=== PATIENT | female | born 1995 | race Two or more races ===

== ENCOUNTER 2018-11-21 16:50 | Observation (INO) | payer BC, MEDICAID ==
[~2018-11-21] VITALS: Ht 162.6 cm; Wt 52.0 kg
[2018-11-21] MEDS ORDERED: normal saline 1000ML IV soln IVB ONE (17:00)
[2018-11-21] MEDS ORDERED: metoclopramide 5 mg/ml inj IV ONE (17:00)
[2018-11-21] MEDS ORDERED: morphine 4 MG/ML inj SYRINge IV ONE (17:00)
[2018-11-21 17:31] LABS: BASOPHILS % (AUTO) 0.4 % (0-1); EOSINOPHILS % (AUTO) 0.3 % (0-6); HEMATOCRIT 36.6 % (35.0-45.0); HEMOGLOBIN 12.8 g/dl (12.0-16.0); LYMPHOCYTES # (AUTO) 2.6 X10'3 (1.1-4.8); LYMPHOCYTES % (AUTO) 21.5 % (21-51); MEAN CORPUSCULAR HEMOGLOBIN 31.2 PG (27.0-31.0); MEAN CORPUSCULAR HGB CONC 35.1 g/dL (33.0-36.5); MEAN CORPUSCULAR VOLUME 88.8 FL (78-98); MEAN PLATELET VOLUME 7.6 FL (7.4-10.4); MONOCYTES # (AUTO) 1.2 X10'3 (0-0.9); MONOCYTES % (AUTO) 9.9 % (2-12); NEUTROPHILS # (AUTO) 8.2 X10'3 (1.8-7.7); NEUTROPHILS % (AUTO) 67.9 % (42-75); PLATELET COUNT 318 X10'3 (140-440); RED BLOOD COUNT 4.12 X10'6 (4.20-5.60); RED CELL DISTRIBUTION WIDTH 12.8 % (11.5-14.5); WHITE BLOOD COUNT 12.1 X10'3 (4.5-11.0)
[2018-11-21 17:51] LABS: ALANINE AMINOTRANSFERASE 96 U/L (12-78); ALBUMIN 3.6 G/DL (3.4-5.0); ALBUMIN/GLOBULIN RATIO 1.2 (1.1-1.5); ALKALINE PHOSPHATASE 65 IU/L (46-116); ANION GAP 8 (8-16); ASPARTATE AMINO TRANSFERASE 37 U/L (10-37); BILIRUBIN,TOTAL 1.4 MG/DL (0.1-1.0); BLOOD UREA NITROGEN 12 MG/DL (7-18); BUN/CREATININE RATIO 18.2 (6.6-38.0); CHLORIDE 104 MMOL/L (99-107); CREATININE 0.66 MG/DL (0.40-0.90); GLUCOSE 93 MG/DL (70-104); LIPASE 330 U/L (73-393); POTASSIUM 3.7 MMOL/L (3.5-5.1); SODIUM 136 MMOL/L (135-145); TOTAL CARBON DIOXIDE 24.2 MMOL/L (24-32); TOTAL PROTEIN 6.5 G/DL (6.4-8.2); eGFR > 90 ML/MIN
[2018-11-21 17:57] LABS: CALCIUM 8.5 MG/DL (8.5-10.1)
[2018-11-21] MEDS ORDERED: famotidine/PF 10 mg/ml inj IV ONE (18:15)
--- NOTE | 2018-11-21 18:34 | NUR ---
U/S JUST FINISHED WITH PT
[2018-11-21] MEDS ORDERED: NO HOME MEDS (18:39)
[2018-11-21] MEDS ORDERED: ondansetron/PF 4mg/2ml inj IV PRN (20:20)
[2018-11-21] MEDS ORDERED: morphine 2 MG/ML inj. syringe IV PRN (20:20)
[2018-11-21] MEDS ORDERED: acetaminophen 325mg tablet PO PRN (20:20)
[2018-11-21] MEDS ORDERED: pantoprazole 40 MG vial IV ONE (20:25)
[2018-11-21 20:45] VITALS: BP 115/73
[2018-11-21] MEDS: normal saline 1000ml 1,000 ML IV SCH (21:30)
--- NOTE | 2018-11-21 21:30 | NUR ---
pt alert & orientedx4, call light within reach, in no apparent distress,
[2018-11-21] MEDS: morphine 2 MG/ML inj. syringe IV PRN (21:58)
[2018-11-22] VITALS (8 sets, daily range): BP systolic 114–138; BP diastolic 69–86
[2018-11-22] MEDS: morphine 2 MG/ML inj. syringe IV PRN (05:07)
[2018-11-22 06:00] LABS: BASOPHILS % (AUTO) 0.4 % (0-1); EOSINOPHILS # (AUTO) 0.1 X10'3 (0-0.9); EOSINOPHILS % (AUTO) 1.3 % (0-6); HEMATOCRIT 34.4 % (35.0-45.0); HEMOGLOBIN 12.2 g/dl (12.0-16.0); LYMPHOCYTES # (AUTO) 2.6 X10'3 (1.1-4.8); LYMPHOCYTES % (AUTO) 28.5 % (21-51); MEAN CORPUSCULAR HEMOGLOBIN 31.5 PG (27.0-31.0); MEAN CORPUSCULAR HGB CONC 35.4 g/dL (33.0-36.5); MEAN CORPUSCULAR VOLUME 89.1 FL (78-98); MEAN PLATELET VOLUME 7.7 FL (7.4-10.4); MONOCYTES # (AUTO) 0.9 X10'3 (0-0.9); MONOCYTES % (AUTO) 9.5 % (2-12); NEUTROPHILS # (AUTO) 5.4 X10'3 (1.8-7.7); NEUTROPHILS % (AUTO) 60.3 % (42-75); PLATELET COUNT 243 X10'3 (140-440); RED BLOOD COUNT 3.86 X10'6 (4.20-5.60); RED CELL DISTRIBUTION WIDTH 13.2 % (11.5-14.5)
[2018-11-22 06:09] LABS: ALANINE AMINOTRANSFERASE 69 U/L (12-78); ALBUMIN 3.1 G/DL (3.4-5.0); ALBUMIN/GLOBULIN RATIO 1.2 (1.1-1.5); ALKALINE PHOSPHATASE 57 IU/L (46-116); ANION GAP 7 (8-16); ASPARTATE AMINO TRANSFERASE 20 U/L (10-37); BILIRUBIN,TOTAL 1.1 MG/DL (0.1-1.0); BLOOD UREA NITROGEN 11 MG/DL (7-18); BUN/CREATININE RATIO 15.9 (6.6-38.0); CALCIUM 7.8 MG/DL (8.5-10.1); CHLORIDE 108 MMOL/L (99-107); CREATININE 0.69 MG/DL (0.40-0.90); GLUCOSE 85 MG/DL (70-104); POTASSIUM 3.5 MMOL/L (3.5-5.1); SODIUM 139 MMOL/L (135-145); TOTAL CARBON DIOXIDE 23.9 MMOL/L (24-32); TOTAL PROTEIN 5.6 G/DL (6.4-8.2); eGFR > 90 ML/MIN
--- NOTE | 2018-11-22 06:25 | NUR ---
Gave report to Yoanna SOLITARIO pt is awake and alert on RA, in no apparent distress, call light and items of freq use within reach.
[2018-11-22] MEDS: normal saline 1000ml 1,000 ML IV SCH ×2 (06:56→16:19)
[2018-11-22] MEDS ORDERED: pantoprazole 40 MG vial IV SCH (08:00)
[2018-11-22] MEDS ORDERED: sincalide inj 1 MCG in normal saline 50ml IV soln 50 ML IV ONE (08:25)
--- NOTE | 2018-11-22 11:13 | NUR ---
Picked up for HIDA scan.
[2018-11-22] MEDS ORDERED: MIDAZolam 5mg/5ml vial ONE (13:16)
[2018-11-22] MEDS ORDERED: fentaNYL/PF 50MCG/1 ML 2ML syringe ONE (13:16)
[2018-11-22] MEDS ORDERED: LIDOcaine Viscous 15ml cup ONE (13:16)
--- NOTE | 2018-11-22 13:19 | NUR ---
Patient went from HIDA scan, directly to GI lab.
[2018-11-22] MEDS ORDERED: ONDA4TAB12 PO (16:04)
[2018-11-22] MEDS ORDERED: PANT-47 PO (16:04)
--- NOTE | 2018-11-22 17:52 | NUR ---
Patient discharged to [facility] via [facility]. Stable and appropriate. All belongings taken from room. New prescriptions called into [facility]. IV removed.
== END 2018-11-22 17:58 | disposition home or self-care (01) ==
LOC: ER 16:51 → SUR 3N 20:30 → CMPBEDREQ 20:57
PROVIDERS: ADMIT Internal Medicine; ATTEND Family Medicine
DX: R10.13 Epigastric pain (principal); K20.8 Other esophagitis; R11.2 Nausea with vomiting, unspecified; K82.8 Other specified diseases of gallbladder; D72.829 Elevated white blood cell count, unspecified; D72.823 Leukemoid reaction
CPT/HCPCS: 36415; 43239; 76700; 78227; 80053; 83690; 85025; 87081; 96361; 96374; 96375; 96376; 99284; A9537; C9113; G0378; J2250; J2270; J2765; J2805; J3010; J3490; J7030; J7040; 99152; A4620